=== PATIENT | male | born 1985 | race Caucasian/White ===

== ENCOUNTER 2022-06-01 12:19 | Outpatient (REF) | payer BC, SELFPAY ==
[2022-06-01 12:58] LABS: Binax Now Covid-19 Ag Negative (Negative)
[2022-06-01 12:59] LABS: Binax Internal Control QC Valid; Binax Performed by: HO.BONILM
== END 2022-06-01 12:20 | disposition home or self-care (01) ==
LOC: HO.HMGCLDS 12:19
PROVIDERS: Visit Provider Physician Assistant
DX: Z20.822 Contact with and (suspected) exposure to COVID-19 (principal); J02.9 Acute pharyngitis, unspecified
CPT/HCPCS: 87811; C9803